=== PATIENT | female | born 1975 | race Caucasian/White ===

== ENCOUNTER 2016-07-01 13:01 | Emergency (ER) | payer OTHER ==
[~2016-07-01] VITALS: Ht 162.6 cm; Wt 69.4 kg
[2016-07-01 15:44] VITALS: BP 130/75
== END 2016-07-01 15:44 | disposition home or self-care (01) ==
LOC: ED 13:01
DX: S90.461A Insect bite (nonvenomous), right great toe, initial encounter (principal); L03.031 Cellulitis of right toe; W57.XXXA Bitten or stung by nonvenomous insect and other nonvenomous arthropods, initial encounter; Y93.89 Activity, other specified; Y92.89 Other specified places as the place of occurrence of the external cause; Y99.8 Other external cause status
CPT/HCPCS: 90715; J0696